=== PATIENT | female | born 1945 | race Caucasian/White ===

== ENCOUNTER 2020-08-30 09:54 | Outpatient (CLI) | payer MEDICARE, SELFPAY ==
--- NOTE | ~2020-08-30 | MR_ITS ---
EXAMINATION: MR foot RT wo con DATE: 08/30/2020 10:55 INDICATION: Right foot arthritis TECHNIQUE: Magnetic resonance imaging (MRI) of the right foot was performed without intravenous contr ast. Sequences included sagittal T1-weighted FSE, sagittal fluid sensitive FSE STIR, coronal PD-weigh lisa FS FSE, coronal T1-weighted FSE, axial PD-weighted FS FSE, and axial PD-weighted FSE. COMPARISON: None FINDINGS: Bone alignment is normal. No fracture or pathologic marrow replacing process. 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 Mild osteoarthritis at the third and fourth tarsal metatarsal joints. No erosions to suggest an inflammat ory arthritis. The medial and lateral stabilizing ligaments at the ankle and the Lisfranc ligament co mplex are normal. Mild tendinopathy and longitudinal split tearing of the peroneus brevis tendon at t he level of the tip of the lateral malleolus. The flexor tendons of the foot and ankle are otherwise normal. Small lobulated fluid collection along the extensor digitorum longus tendons at the level of the hindfoot. The fluid appears only partially encompass the tendons and would favor a ganglion cyst appearing to arise from the tibiotalar or talonavicular joints tenosynovitis. The extensor tendons of the foot and ankle are otherwise normal. IMPRESSION: 1. Mild tendinopathy and longitudinal split tear of the peroneus brevis tendon. 2. 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 3. Small fluid collection tracking along and partially encompassing the extensor digitorum longus ten dons and favor a ganglion cyst arising from the tibiotalar or talonavicular joints over tenosynovitis . Reviewed, dictated and finalized at location A. IMPRESSION: 1. Mild tendinopathy and longitudinal split tear of the peroneus brevis tendon. 2. 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 3. Small fluid collection tracking along and partially encompassing the extenso r digitorum longus tendons and favor a ganglion cyst arising from the tibiotala r or talonavicular joints over tenosynovitis.
== END 2020-08-30 09:55 | disposition home or self-care (01) ==
PROVIDERS: Visit Provider Podiatrist Foot & Ankle Surgery
DX: M13.871 Other specified arthritis, right ankle and foot (principal); M76.61 Achilles tendinitis, right leg
CPT/HCPCS: 73718